=== PATIENT | female | born 1965 | race Two or more races ===

== ENCOUNTER 2018-04-12 13:07 | Emergency (ER) | payer SELFPAY ==
[~2018-04-12] VITALS: Ht 162.6 cm; Wt 68.0 kg
[~2018-04-12 13:07] MED LIST: ASPIRIN500 MG ORAL; NAPROXEN250 M1 PO; NORVASC2.5 MG ORAL
--- NOTE | 2018-04-12 13:08 | NUR ---
ED Nurse Note: Pt brought in by [facility] c/o chest pain started about 30 min ago radiating to right initially and now radiating to left. pt AA&ox4, gcs=15, skin warm and dry, resp even and unlabored -n/v/d, ambulates w/ steady gait, will cont monitor.
[2018-04-12 13:29] VITALS: BP 148/84
[2018-04-12] MEDS ORDERED: ROBAXIN-750750 MG PO (13:44)
[2018-04-12] MEDS ORDERED: TYLENOL EXTRA500 MG ORAL (13:44)
[2018-04-12] MEDS ORDERED: Acetaminophen 500mg (ES) tab ORAL ONE (13:45)
[2018-04-12] MEDS ORDERED: Methocarbamol 750mg tab ORAL ONE (13:45)
[2018-04-12 13:52] VITALS: BP 138/68
--- NOTE | 2018-04-12 13:53 | NUR ---
ED Nurse Note: pt is cleared to be d/c per ERMD, pt discharge instruction with prescription provided per ERMD, pt education done via discussion and hand out, pt advised to follow up with pcp or return to ED if sx worsen or new sx develop, pt verbalized understanding and agrees with plan, pt vss, nsr on monitor worker, resp even and unlabored on RA, all belongings left w/ pt.
--- NOTE | 2018-04-12 15:07 | Emergency Room Report ---
History of Present Illness General Chief Complaint: Chest Pain Source: Patient, EMS Present Illness HPI 53-year-old female presents ED for evaluation. Brought in by EMS complaining of chest pain. Started about 30 minutes prior to arrival. Was doing work at the time. Pain was midsternal, sharp, 8 out of 10, radiating to the back. Worse with twisting and bending. Denies shortness of breath. Notes history of hypertension.. Blood pressure here within normal limits. States she is compliant with her medications. Denies smoking or drug use. No other aggravating relieving factors. Denies any other associated symptoms Allergies: Coded Allergies: No Known Allergies (Unverified , 04/12/18) Patient History Past Medical History: HTN Past Surgical History: none Pertinent Family History: none Social History: Denies: smoking, alcohol use, drug use Now: No Immunizations: UTD Reviewed Nursing Documentation: PMH: Agreed; PSxH: Agreed Nursing Documentation-PMH Hx Hypertension: Yes Review of Systems All Other Systems: negative except mentioned in HPI Physical Exam Vital Signs Date Time Temp Pulse Resp B/P (MAP) Pulse Ox O2 Delivery O2 Flow Rate FiO2 04/12/18 12:40 88 16 139/83 98 Room Air 04/12/18 13:52 98.3 Sp02 EP Interpretation: reviewed, normal General Appearance: no apparent distress, alert, GCS 15, non-toxic Head: normocephalic Eyes: bilateral eye normal inspection, bilateral eye PERRL ENT: normal ENT inspection Neck: normal inspection Respiratory: lungs clear, normal breath sounds, speaking full sentences, other - reproducible sternal pain Cardiovascular #1: regular rate, rhythm, no edema Gastrointestinal: normal bowel sounds, non tender, soft, non-distended, no guarding, no rebound Rectal: deferred Genitourinary: no CVA tenderness Musculoskeletal: other - paraspinal thoracic tenderness Neurologic: alert, oriented x3, responsive, motor strength/tone normal, sensory intact, speech normal Psychiatric: normal inspection Skin: normal inspection Lymphatic: normal inspection Medical Decision Making Diagnostic Impression: Primary Impression: Chest wall pain ER Course Hospital Course 53-year-old female presents ED complaining of reproducible chest wall pain Differential diagnoses include: Rib fracture, [place]/unstable angina, contusion, muscle strain Clinical course Patient placed on stretcher. After initial history, physical exam reveals female in no acute distress. There is reproducible sternal pain. Also pain in the thoracic paraspinal region. Lungs clear. Blood pressure within normal limits. Pain appears more muscular in nature. EKGnormal sinus rhythm no acute ischemic changes interpreted by me clinical findings consistent with muscle strain/costochondritis. Reassurance given. Patient given tylenol/robaxin for pain Safe for discharge with close outpatient follow-up. Patient states she has a PMD I. I feel this is a highly complex case requiring extensive working including EKG/Rhythm strip, Xray/CT/US, Blood/urine lab work, repeat exams while in ED, and administration of strong opiates/narcotics for pain control, admission to hospital or close patient follow up. Diagnosis - chest wall pain Stable and discharged to home with prescription for tylenol/robaxin. Instructed to followup with PMD. Return to ED if symptoms recur or worsen my chest wall pain shortness EKG Diagnostic Results Rate: normal Rhythm: NSR ST Segments: no acute changes ASA given to the pt in ED: No Rhythm Strip Diag. Results EP Interpretation: yes Rhythm: NSR, no PVC's, no ectopy Last Vital Signs Date Time Temp Pulse Resp B/P (MAP) Pulse Ox O2 Delivery O2 Flow Rate FiO2 04/12/18 13:52 98.3 68 16 138/68 100 Room Air Status: improved Disposition: HOME, SELF-CARE Condition: Stable Scripts Methocarbamol* (ROBAXIN-750*) 750 Mg Tablet 750 MG PO TID, #21 TAB 0 Refills Prov: Lion Potts MD 04/12/18 Acetaminophen* (TYLENOL EXTRA STRENGTH*) 500 Mg Tablet 500 MG ORAL Q8H PRN for Prn Headache/Temp > 101, #30 TAB 0 Refills Prov: Lion Potts MD 04/12/18 Referrals: NOT CHOSEN IPA/,REFERRING (PCP) Awilda Archuleta [facility]. [facility] Patient Instructions: Chest Wall Pain, [id number] Lion Potts MD Apr 12, 2018 15:07
--- NOTE | 2018-04-13 15:32 | Cardiology Report ---
APPROVED REPORT EKG Measurement Heart [id number] Normal sinus rhythm Anterior infarct, age undetermined Abnormal ECG
== END 2018-04-12 13:52 | disposition home or self-care (01) ==
LOC: EDBD 13:07 → EMR 13:34
DX: R07.89 Other chest pain (principal); I10 Essential (primary) hypertension
CPT/HCPCS: 93005; 99283